=== PATIENT | male | born 1940 | race Caucasian/White ===

== ENCOUNTER 2017-06-04 18:10 | Emergency (ER) | payer OTHER ==
[~2017-06-04] VITALS: Ht 182.9 cm; Wt 93.5 kg
[~2017-06-04 18:10] MED LIST: ALLO300 PO; ASPI81 PO; FENO160T2 PO; LEVO.05 PO; OMEP20CA5 PO; PRIN20TA2 PO; TERA5CAP3 PO; TOPR50TA PO
[2017-06-04 18:13] VITALS: BP 183/78; PULSE 107; RESP 18; TEMP 99.2; O2SAT 95
[2017-06-04] MEDS ORDERED: FENO160T PO (18:43)
[2017-06-04] MEDS ORDERED: DEXT1TAB18 PO (18:43)
[2017-06-04] MEDS ORDERED: VITA500T4 PO (18:43)
[2017-06-04] MEDS ORDERED: FEXO15TA PO (18:43)
[2017-06-04] MEDS ORDERED: IRBE150T15 PO (18:43)
[2017-06-04] MEDS ORDERED: OSEL75 PO (18:43)
[2017-06-04] MEDS ORDERED: OMEP20TA93 PO (18:43)
[2017-06-04] MEDS ORDERED: ALLO300T2 PO (18:43)
[2017-06-04] MEDS ORDERED: LEVO.05 PO (18:43)
[2017-06-04] MEDS ORDERED: ASPI81CH7 CHEW (18:43)
[2017-06-04] MEDS ORDERED: D31000CA3 PO (18:43)
[2017-06-04] MEDS ORDERED: HYDR12.56 PO (18:43)
[2017-06-04] MEDS ORDERED: HYDR-3801 PO (18:43)
[2017-06-04] MEDS ORDERED: CHLO.12%30 SWISH-SPIT (18:43)
--- NOTE | 2017-06-04 19:21 | PD ---
HPI Chief Complaint: Cold / Flu Symptoms Time Seen by Provider: 18:58 Travel History International Travel<30 days: Yes Contact w/Intl Traveler<30days: Yes Name of Country Traveled to: [place] Traveled to known affect area: No History of Present Illness HPI This is a 76-year-old male here for evaluation of fever, body aches, nasal congestion since today. He recently returned from a cruise to the [facility]. His primary care doctor prescribed him Tamiflu & azithromycin prior to his cruise in case he came into contact with the flu & needed treatment. Patient took his first dose of Tamiflu this morning. He was unsure if he should take the azithromycin which is why he came in today. He denies chest pain or shortness of breath. Severity is mild to moderate. No aggravating or alleviating factors. PFSH Past Medical History Diminished Hearing: Yes GERD: Yes Gout: Yes Hypertension: Yes Immunizations Current: Yes Thyroid Disease: Yes Triglycerides - High: Yes Tetanus Vaccination: > 5 Years Influenza Vaccination: Yes Past Surgical History Cholecystectomy: Yes Oral Surgery: Yes Other Surgery: Yes (PILONIDAL CYST) Social History Alcohol Use: No Tobacco Use: No Substance Use: No Allergies-Medications (Allergen,Severity, Reaction): Coded Allergies: No Known Allergies (Verified Adverse Reaction, Unknown, 06/04/17) Reported Meds & Prescriptions Reported Meds & Active Scripts Active Reported Tamiflu (Oseltamivir Phosphate) 75 Mg Cap 75 Mg PO BID Vitamin B-12 (Cyanocobalamin) 500 Mcg Tab 1,000 Mcg PO DAILY Vitamin D-3 (Cholecalciferol) 1,000 Unit Cap 1 Tab PO DAILY Synthroid (Levothyroxine Sodium) 50 Mcg Tab 50 Mcg PO DAILY Omeprazole 20 Mg Tab 20 Mg PO DAILY Mucinex DM Maximum Strength (Dextromethorphan-Guaifenesin ER 12 HR) 60-1,200 Mg Tab 1 Tab PO BID PRN Irbesartan 150 Mg Tab 150 Mg PO BID Hydrochlorothiazide 12.5 Mg Tab 12.5 Mg PO SUN,,,SAT Hydralazine (Hydralazine HCl) 100 Mg Tab 100 Mg PO BID Take with meals Fenofibrate 160 Mg Tab 160 Mg PO DAILY Chlorhexidine Gluconate (Mouth) Liq (Chlorhexidine Gluconate) 0.12% Soln 15 Ml SWISH-SPIT BID Aspirin Children's (Aspirin) 81 Mg Chew 81 Mg CHEW DAILY [facility] (Fexofenadine HCl) 180 Mg Tab 180 Mg PO DAILY Allopurinol 300 Mg Tab 300 Mg PO DAILY Review of Systems Except as stated in HPI: all other systems reviewed are Neg General / Constitutional: Positive: Fever Eyes: No: Visual changes HENT: No: Headaches Cardiovascular: No: Chest Pain or Discomfort Respiratory: Positive: Cough Gastrointestinal: No: Abdominal Pain Genitourinary: No: Dysuria Musculoskeletal: Positive: Myalgias Skin: No Rash Neurologic: No: Weakness Physical Exam Narrative GENERAL: Alert and well-appearing 76 old male SKIN: Warm and dry. No rash HEAD: Normocephalic. EYES: No injection or drainage. NECK: Supple. No meningismus CARDIOVASCULAR: Regular rate and rhythm. No murmur appreciated RESPIRATORY: Breath sounds equal bilaterally. No accessory muscle use. No wheezing, rales, rhonchi. GASTROINTESTINAL: Abdomen soft, non-tender, nondistended. MUSCULOSKELETAL: No cyanosis, or edema. BACK: Nontender without obvious deformity. No CVA tenderness. Data Data Last Documented VS Vital Signs Date Time Temp Pulse Resp B/P (MAP) Pulse Ox O2 Delivery O2 Flow Rate FiO2 06/04/17 18:13 99.2 107 18 183/78 (113) 95 Orders Orders Chest, Pa & Lat (06/04/17 ) [facility] Medical Decision Making Medical Screen Exam Complete: Yes Emergency Medical Condition: Yes Differential Diagnosis Influenza, pneumonia, bronchitis Narrative Course This is a 76-year-old male here with influenza-like illness times one day. Patient already initiated Tamiflu this morning as prescribed by his doctor in [place]. He is well-appearing. His vital signs are stable. Chest x-ray shows no abnormality. This was discussed with patient. I strongly feel that this is influenza and he should continue taking the Tamiflu. Given his age and recent travel on a cruise ship in close proximity to other sick people. I also suggest he take his azithromycin. Patient agrees to this plan. Return precautions were discussed. Diagnosis Primary Impression: Influenza-like illness Referrals: Primary Care Physician Additional Instructions: Continue Tamiflu as directed. Azithromycin as directed. Tylenol as needed for fever. Stay well hydrated by drinking plenty of fluids Disposition: 01 DISCHARGE HOME Condition: Stable Lata Han Jun 04, 2017 19:21
--- NOTE | 2017-06-04 19:35 | RADRPT ---
EXAM DATE/TIME: 06/04/2017 19:09 [place] COMPARISON: No previous studies available for comparison. INDICATIONS : Cough. MEDICAL HISTORY : None. SURGICAL HISTORY : None. ENCOUNTER: Initial ACUITY: 4 - 6 days PAIN SCORE: 0/10 LOCATION: Bilateral chest FINDINGS: PA and lateral views of the chest demonstrate the lungs to be symmetrically aerated without evidence of mass, infiltrate or effusion. The cardiomediastinal contours are unremarkable. Osseous structure s are intact. CONCLUSION: No acute disease. Patel Manning MD on June 04, 2017 at 19:34 Board Certified Radiologist. This report was verified electronically.
== END 2017-06-04 20:09 | disposition home or self-care (01) ==
LOC: PHEFT 18:10
DX: J11.1 Influenza due to unidentified influenza virus with other respiratory manifestations (principal); I10 Essential (primary) hypertension; K21.9 Gastro-esophageal reflux disease without esophagitis
CPT/HCPCS: 71046; 87804; 99284